=== PATIENT | female | born 1955 | race Two or more races ===

== ENCOUNTER 2022-09-28 14:07 | Emergency (ER) | payer BC ==
[2022-09-28 14:34] VITALS: BP 114/65; PULSE 77; RESP 20; TEMP 97.9; BMI 26.4
[2022-09-28] MEDS ORDERED: IBUPROFEN 400 MG TABLET (FP) PO ONE ×2 (15:02→15:07)
== END 2022-09-28 15:46 | disposition home or self-care (01) ==
LOC: JERFT 14:07
DX: M25.571 Pain in right ankle and joints of right foot (principal); M76.61 Achilles tendinitis, right leg
CPT/HCPCS: 99283-25